=== PATIENT | female | born 1975 | race Native Hawaiian/Other Pacific Islander ===

== ENCOUNTER 2019-06-10 17:42 | Emergency (ER) | payer OTHER, BC ==
--- NOTE | 2019-06-10 17:52 | PDOC ---
Rapid Medical Evaluation Chief Complaint: Pain, Acute Time Seen by Provider: 06/10/19 17:50 Medical Evaluation: Allergies Allergy/AdvReac Type Severity Reaction Status Date / Time No Known Drug Allergies Allergy Verified 06/17/18 07:12 06/10/19 17:50 I have performed a brief in-person evaluation of this patient. The patient presents with a chief complaint of: Right flank pain radiating to RLQ Pertinent physical exam findings: No CVAT. No abd tenderness. I have ordered the following: urine, labs The patient will proceed to the ED for further evaluation. Discharge Disposition - Diagnosis Flank pain - Referrals - Patient Instructions - Post Discharge Activity
[2019-06-10 17:53] VITALS: TEMP 98.4; BMI 39.9
[2019-06-10] MEDS ORDERED: KETOROLAC TROMETHAMINE 30 MG/1 ML VIAL IVPUSH ONE (17:53)
[2019-06-10] MEDS ORDERED: ACETAMINOPHEN 1000 MG/100 ML VIAL (NON FORMULARY) IVPB ONE (18:23)
[2019-06-10] MEDS ORDERED: SODIUM CHLORIDE 1,000 ML IV STA (18:23)
--- NOTE | 2019-06-10 18:23 | PDOC ---
History of Present Illness - General Chief Complaint: Pain, Acute Stated Complaint: ABD PAIN Time Seen by Provider: 06/10/19 17:50 History Source: Patient Exam Limitations: No Limitations - History of Present Illness Initial Comments: 06/10/19 19:06 44 year old female with PMH HTN, multiple kidney stones presented to ED for right flank pain x2 days. Pt reported nausea. Pt stated her pain is constant, sharp, radiating from her RLQ to her right low back, no alleviating or aggravating factors. Pt reported symptoms feel similar to prior kidney stones. Pt denied vomiting, diarrhea, fever, constipation. Surgical history: cholecystectomy, hysterectomy Past History - Past Medical History Allergies/Adverse Reactions: Allergies Allergy/AdvReac Type Severity Reaction Status Date / Time No Known Drug Allergies Allergy Verified 06/10/19 17:53 Home Medications: Ambulatory Orders Lisinopril 5 mg PO DAILY 10/20/15 Oxycodone HCl/Acetaminophen [Percocet 10-325 mg Tablet] 1 tab PO ASDIR PRN #90 tablet MDD 8 09/25/16 HTN: Yes Kidney Stones: Yes - Surgical History Cholecystectomy: Yes - Suicide/Smoking/Psychosocial Hx Smoking Status: No Smoking History: Never smoked Have you smoked in the past 12 months: No Number of Cigarettes Smoked Daily: 0 Hx Alcohol Use: No Drug/Substance Use Hx: No Substance Use Type: None Hx Substance Use Treatment: No Review of Systems - Review of Systems Able to Perform ROS?: Yes Comments:: General: denied fever, chills, generalized weakness. HEENT: denied sore throat, rhinorrhea, ear pain. Cardiovascular: denied chest pain, palpitations, syncope, diaphoresis. Respiratory: denied shortness of breath, cough, sputum production, hemoptysis. Gastrointestinal: admitted to nausea. denied abdominal pain, vomiting, diarrhea , constipation, blood in stool. Genitourinary: admitted to flank pain. denied dysuria, increased urinary frequency, hematuria, urinary incontinence. Back: denied back pain. Musculoskeletal: denied joint pain, muscle pain, joint swelling. Neurological: denied headache, dizziness, numbness, tingling, weakness. Integumentary: denied rash, laceration, abrasion. Hematologic/Lymphatic: denied bruising or bleeding. *Physical Exam - Vital Signs Last Vital Signs Temp Pulse Resp BP Pulse Ox 98.4 F 92 H 10 192/111 H 99 06/10/19 17:50 06/10/19 17:50 06/10/19 17:50 06/10/19 17:50 06/10/19 17:50 - Physical Exam Comments: Constitutional: Well-nourished, Well-developed, appearing stated age. HEENT: head is normocephalic, atraumatic. EOMI. PERRLA. Neck: supple. Full ROM. Cardiovascular: regular heart rhythm. no murmurs. no pericardial friction rub. Respiratory: clear to auscultation bilaterally. no crackles, rhonchi or wheezing. no stridor. Gastrointestinal: soft, nontender. normal bowel sounds. no rebound, guarding, masses. Back: positive right sided CVA tenderness to palpation. negative left sided CVA tenderness to palpation. Extremities: peripheral pulses intact. no lower extremity edema. Neurological: CN 2-12 grossly intact. moves all four extremities. Psych: awake, alert, oriented x3. follows commands. answers questions appropriately. ED Treatment Course - LABORATORY CBC & Chemistry Diagram: 06/10/19 20:45 06/10/19 20:45 Medical Decision Making - Medical Decision Making 06/10/19 20:06 44 year old female with above PMH presented to ED for right flank pain x2 days. Initial Vital Signs Temp Pulse Resp BP Pulse Ox 98.4 F 92 H 10 192/111 H 99 06/10/19 17:50 06/10/19 17:50 06/10/19 17:50 06/10/19 17:50 06/10/19 17:50 Afebrile. No tachycardia. No tachypnea. Hypertensive - pt is in pain No hypoxia on room air. Labs ordered: CBC, CMP Imaging ordered: Spiral Abdominal CT noncontrast Medications ordered: normal saline bolus 1000 cc once, 1 percocet PO once 06/10/19 21:11 CBC WBC 12.2 K/mm3 (4.0-10.0) H 06/10/19 20:45 RBC 4.38 M/mm3 (3.60-5.2) 06/10/19 20:45 Hgb 12.3 GM/dL (10.7-15.3) 06/10/19 20:45 Hct 38.0 % (32.4-45.2) 06/10/19 20:45 MCV 86.9 fl (80-96) 06/10/19 20:45 MCH 28.1 pg (25.7-33.7) 06/10/19 20:45 MCHC 32.3 g/dl (32.0-36.0) 06/10/19 20:45 RDW 13.8 % (11.6-15.6) 06/10/19 20:45 Plt Count 379 K/MM3 (134-434) 06/10/19 20:45 MPV 8.6 fl (7.5-11.1) 06/10/19 20:45 Absolute Neuts (auto) 8.0 K/mm3 (1.5-8.0) 06/10/19 20:45 Neutrophils % 65.9 % (42.8-82.8) 06/10/19 20:45 Lymphocytes % 26.9 % (8-40) 06/10/19 20:45 Monocytes % 5.1 % (3.8-10.2) 06/10/19 20:45 Eosinophils % 1.2 % (0-4.5) 06/10/19 20:45 Basophils % 0.9 % (0-2.0) 06/10/19 20:45 Nucleated RBC % 0 % (0-0) 06/10/19 20:45 Leukocytosis without left shift. No anemia. No thrombocytopenia. 06/10/19 21:49 CMP Sodium 139 mmol/L (136-145) 06/10/19 20:45 Potassium 4.3 mmol/L (3.5-5.1) 06/10/19 20:45 Chloride 107 mmol/L (98-107) 06/10/19 20:45 Carbon Dioxide 27 mmol/L (21-32) 06/10/19 20:45 Anion Gap 5 MMOL/L (8-16) L 06/10/19 20:45 BUN 13.2 mg/dL (7-18) 06/10/19 20:45 Creatinine 0.8 mg/dL (0.55-1.3) 06/10/19 20:45 Est GFR (CKD-EPI)AfAm 105.39 06/10/19 20:45 Est GFR (CKD-EPI)NonAf 90.93 06/10/19 20:45 Random Glucose 89 mg/dL (74-106) 06/10/19 20:45 Calcium 9.3 mg/dL (8.5-10.1) 06/10/19 20:45 Total Bilirubin 0.2 mg/dL (0.2-1) 06/10/19 20:45 AST 23 U/L (15-37) 06/10/19 20:45 ALT 45 U/L (13-61) 06/10/19 20:45 Alkaline Phosphatase 125 U/L (45-117) H 06/10/19 20:45 Total Protein 8.0 g/dl (6.4-8.2) 06/10/19 20:45 Albumin 3.8 g/dl (3.4-5.0) 06/10/19 20:45 Beta HCG, Quant 1.2 mIU/ml 06/10/19 20:45 No electrolyte abnormalities. No GWENDOLYN. No transaminitis. Mild ALP elevation. Serum testing negative. Pt informed of results. Pt taken to CT. Pt signed out to night EM resident, Dr. Chamberlain PGY3. See his note. Pending imaging and disposition. 06/11/19 12:37 Follow up: Official CT report: Exam Date: 06/10/19 Status: [facility] [place] [id number] Unit Number: [id number] EXAM#: TYPE/EXAM: RESULT: [id number] CT/SPIRAL- RENAL-STONE CT Right flank pain. CT scan of the abdomen pelvis without oral and intravenous contrast Coronal and sagittal reformatted images were obtained Compared to prior CT scan of the abdomen and pelvis dated 03/02/2018 The visualized lung base appears unremarkable and the heart is within normal limits in size. Nondistended stomach limiting evaluation of its wall. Status post cholecystectomy surgical metallic clips are present. Evaluation of the liver, spleen, pancreas and both adrenal glands appear unremarkable. The left kidney appears unremarkable. Right kidney is within normal limits in size. Previously visualized punctate nonobstructing right renal stones are no longer seen. There is no evidence of hydroureteronephrosis or ureteral stone, bilaterally. Empty urinary bladder limiting evaluation of its wall without gross intraluminal stones. There is no evidence of small bowel obstruction. Normal-appearing terminal ileum and appendix. Normal stool burden the colon. A few tiny diverticula in the sigmoid colon without evidence of acute diverticulitis. Nonvisualization of the uterus. Perirectal and pericecal fat are clear. Visualized osseous structures appear intact Impression: Previously visualized punctate nonobstructing right renal stones are no longer seen. There is no evidence of hydroureteronephrosis, renal or ureteral stone, bilaterally. Empty urinary bladder limiting its evaluation without gross evidence of intraluminal stones. Correlate clinically to determine further evaluation and follow-up. Status post cholecystectomy. Reported By: Ruy Villavicencio MD 06/10/19 [id number] *DC/Admit/Observation/Transfer Diagnosis at time of Disposition: Flank pain, Chronic pain - Discharge Dispostion Disposition: HOME Condition at time of disposition: Good - Referrals Referrals: Alysa Schneider MD [Primary Care Provider] - Augusto Gao MD [Staff Physician] - - Patient Instructions Printed Discharge Instructions: DI for Prescription Opioid Use Additional Instructions: Your lab work was normal. Your urine analysis was normal. Your CT scan was normal. I am concerned that your symptoms may be due to withdrawal from the large amounts of opiates you have been taking. Follow up with your primary care doctor within 3 days. Your care is not complete until you follow up. Follow up with your urologist within 3 days. Your care is not complete until you follow up. If you were prescribed medications, take as advised on labels. Return to the Emergency Department for increasing pain, chest pain, shortness of breath, fever, blood in urine, increasing abdominal/flank pain, vomiting, blood in stool, blood in vomit, or any other new, worsening or concerning symptoms. - Post Discharge Activity Forms/Work/School Notes: Back to Work
[2019-06-10 21:02] LABS: URINE APPEARANCE CLOUDY; URINE BILIRUBIN NEGATIVE (NEGATIVE); URINE COLOR YELLOW; URINE GLUCOSE (UA) NEGATIVE (NEGATIVE); URINE KETONE NEGATIVE (NEGATIVE); URINE LEUK ESTERASE NEGATIVE (NEGATIVE); URINE NITRITE NEGATIVE (NEGATIVE); URINE PROTEIN NEGATIVE (NEGATIVE); URINE UROBILINOGEN 0.2 mg/dL (0.2-1.0)
[2019-06-10 21:04] LABS: BASO % 0.9 % (0-2.0); EOS % 1.2 % (0-4.5); HEMOGLOBIN 12.3 GM/dL (10.7-15.3); LYMPH % 26.9 % (8-40); MCH 28.1 pg (25.7-33.7); MCHC 32.3 g/dl (32.0-36.0); MEAN CELL VOLUME 86.9 fl (80-96); MEAN PLT VOLUME 8.6 fl (7.5-11.1); MONO % 5.1 % (3.8-10.2); NEUT % 65.9 % (42.8-82.8); PLATELET COUNT 379 K/MM3 (134-434); RBC 4.38 M/mm3 (3.60-5.2); RDW 13.8 % (11.6-15.6); WHITE BLOOD COUNT 12.2 K/mm3 (4.0-10.0)
[2019-06-10 21:39] LABS: ALBUMIN 3.8 g/dl (3.4-5.0); BILIRUBIN,TOTAL 0.2 mg/dL (0.2-1); BLOOD UREA NITROGEN 13.2 mg/dL (7-18); CALCIUM 9.3 mg/dL (8.5-10.1); CREATININE 0.8 mg/dL (0.55-1.3); POTASSIUM 4.3 mmol/L (3.5-5.1)
[2019-06-10] MEDS ORDERED: KETOROLAC TROMETHAMINE 15 MG/ML VIAL IVPUSH ONE (23:17)
--- NOTE | 2019-06-10 23:26 | PDOC ---
*Physical Exam - Vital Signs Last Vital Signs Temp Pulse Resp BP Pulse Ox 98.4 F 92 H 10 192/111 H 99 06/10/19 17:50 06/10/19 17:50 06/10/19 17:50 06/10/19 17:50 06/10/19 17:50 ED Treatment Course - LABORATORY CBC & Chemistry Diagram: 06/10/19 20:45 06/10/19 20:45 - ADDITIONAL ORDERS Additional order review: Laboratory Results 06/10/19 06/10/19 20:50 20:45 Sodium 139 Potassium 4.3 Chloride 107 Carbon Dioxide 27 Anion Gap 5 L BUN 13.2 Creatinine 0.8 Est GFR (CKD-EPI)AfAm 105.39 Est GFR (CKD-EPI)NonAf 90.93 Random Glucose 89 Calcium 9.3 Total Bilirubin 0.2 AST 23 ALT 45 Alkaline Phosphatase 125 H Total Protein 8.0 Albumin 3.8 Beta HCG, Quant 1.2 Urine Color Yellow Urine Appearance Cloudy Urine pH 5.0 Ur Specific [place] 1.037 H Urine Protein Negative Urine Glucose (UA) Negative Urine Ketones Negative Urine Blood Negative Urine Nitrite Negative Urine Bilirubin Negative Urine Urobilinogen 0.2 Ur Leukocyte Esterase Negative 06/10/19 20:45 RBC 4.38 MCV 86.9 MCHC 32.3 RDW 13.8 MPV 8.6 Neutrophils % 65.9 Lymphocytes % 26.9 Monocytes % 5.1 Eosinophils % 1.2 Basophils % 0.9 - Medications Given in the ED: ED Medications Discontinued Medications Generic Name Dose Route Start Last Admin Trade Name Leif PRN Reason Stop Dose Admin Acetaminophen 1,000 mg 06/10/19 18:23 06/10/19 20:54 Ofirmev Injection - IVPB 06/10/19 18:24 Not Given ONCE ONE Sodium Chloride 1,000 mls @ 1,000 mls/hr 06/10/19 18:23 06/10/19 20:54 Normal Saline - IV 06/10/19 19:22 1,000 mls/hr ASDIR STA Administration Ketorolac Tromethamine 30 mg 06/10/19 17:53 06/10/19 20:54 Toradol Injection - IVPUSH 06/10/19 17:54 Not Given ONCE ONE Oxycodone/Acetaminophen 2 combo 06/10/19 19:51 06/10/19 20:54 Percocet 5/325 - PO 06/10/19 19:52 2 combo ONCE ONE Administration Medical Decision Making - Medical Decision Making 06/10/19 23:[address] Cullen. Patient is 44F with history of avila, kidney stones and HTN here today with R flank pain consistent with her prior kidney stones. UA clear, CT normal. Istop shows 90 percocet given per month by urology for past [address] scans that aren't consistent with source of pain. Patient re-examined, reports nonspecific right sided abdominal pain without peritoneal signs. Pain complaint is out of proportion, and patient is walking and sitting without distress. Only has exhibits pain when laying down and being examined, not consistent with ovarian torsion. No signs of surgical abdomen. Will discharge with return precautions. *DC/Admit/Observation/Transfer Diagnosis at time of Disposition: Flank pain, Chronic pain - Discharge Dispostion Disposition: HOME Condition at time of disposition: Good Decision to Admit order: No - Referrals Referrals: Augusto Gao MD [Staff Physician] - Alysa Schneider MD [Primary Care Provider] - - Patient Instructions Printed Discharge Instructions: DI for Prescription Opioid Use Additional Instructions: Your lab work was normal. Your urine analysis was normal. Your CT scan was normal. I am concerned that your symptoms may be due to withdrawal from the large amounts of opiates you have been taking. Follow up with your primary care doctor within 3 days. Your care is not complete until you follow up. Follow up with your urologist within 3 days. Your care is not complete until you follow up. If you were prescribed medications, take as advised on labels. Return to the Emergency Department for increasing pain, chest pain, shortness of breath, fever, blood in urine, increasing abdominal/flank pain, vomiting, blood in stool, blood in vomit, or any other new, worsening or concerning symptoms. - Post Discharge Activity Forms/Work/School Notes: Back to Work
--- NOTE | 2019-06-10 23:34 | PDOC ---
Documentation entered by Cristo Lugo SCRIBE, acting as scribe for Pili Alan DO. Pili Alan DO: This documentation has been prepared by the Parish brambila Aiswarya, SCRIBE, under my direction and personally reviewed by me in its entirety. I confirm that the documentation accurately reflects all work, treatment, procedures, and medical decision making performed by me. Attending Attestation - Resident Resident Name: Kathia Cullen - ED Attending Attestation I have performed the following: I have examined & evaluated the patient, The case was reviewed & discussed with the resident, I agree w/resident's findings & plan - HPI HPI: 06/10/19 23:26 The patient is a 44 year old female, with a significant PMH of kidney stones and HTN, who presents to the emergency department complaining of abdominal pain that began 2 days ago. Patient states constant and sharp pain is located to RLQ that radiates to the right lower back. Endorses associated symptoms of nausea and urinary pressure. Patient ran out of [employer] and HCP is currently away. Last dose was 5 days ago. The patient denies chest pain, shortness of breath, headache and dizziness.Denies fever, chills, nausea, vomiting, diarrhea and constipation. Allergies: NKDA Past surgical history: cholecystectomy, hysterectomy Social history: None reported PCP: None reported - Physicial Exam PE: 06/10/19 23:26 Agree with residents PE - Medical Decision Making 06/10/19 23:30 44-year-old female complaining of right-sided abdominal pain CT scan of the abdomen and pelvis shows no significant abnormalities Patient's prescription history reviewed which shows monthly prescriptions for 90 tablets of Percocet, according to patient her doctor is on vacation, last dose 5 days ago Pain and elevated blood pressure likely consistent with opioid dependence Patient has had some mild relief with Percocet in the emergency department She will be given Toradol prior to discharge and has been advised to call her regular physician for refill
[2019-06-10] MEDS ORDERED: KETOROLAC TROMETHAMINE 15 MG/ML VIAL ONE (23:43)
[2019-06-11 00:21] VITALS: BP 160/99; PULSE 81
== END 2019-06-10 23:50 | disposition home or self-care (01) ==
LOC: JER 17:42
PROC: 3E0337Z Introduction of Electrolytic and Water Balance Substance into Peripheral Vein, Percutaneous Approach (ICD-10-PCS; principal; 2019-06-10)
PROC: 3E0333Z Introduction of Anti-inflammatory into Peripheral Vein, Percutaneous Approach (ICD-10-PCS; 2019-06-10)
DX: R10.31 Right lower quadrant pain (principal); I10 Essential (primary) hypertension; Z87.442 Personal history of urinary calculi; D72.829 Elevated white blood cell count, unspecified; F11.90 Opioid use, unspecified, uncomplicated
CPT/HCPCS: 36415; 74176-TC; 80053; 81003; 84702; 85025; 87086; 99283-25; J7030

== ENCOUNTER 2021-06-01 13:58 | Observation (INO) | payer OTHER, BC ==
[2021-06-01] MEDS ORDERED: ASPIRIN 325 MG TABLET PO ONE (14:58)
[2021-06-01 15:12] LABS: BASO % 0.8 % (0-2.0); EOS % 1.3 % (0-4.5); HEMATOCRIT 34.4 % (32.4-45.2); HEMOGLOBIN 11.4 GM/dL (10.7-15.3); LYMPH % 26.1 % (8-40); MEAN CELL VOLUME 84.7 fl (80-96); MEAN PLT VOLUME 8.3 fl (7.5-11.1); MONO % 5.8 % (3.8-10.2); PLATELET COUNT 345 10^3/uL (134-434); RBC 4.06 M/mm3 (3.60-5.2); RDW 13.6 % (11.6-15.6); WHITE BLOOD COUNT 11.6 K/mm3 (4.0-10.0)
[2021-06-01] MEDS ORDERED: ASPIRIN 81 MG CHEWABLE TABLETS ONE (15:12)
[2021-06-01] MEDS ORDERED: ASPIRIN 81 MG CHEWABLE TABLETS PO ONE (15:13)
[2021-06-01 15:26] LABS: CALCIUM 8.4 mg/dL (8.5-10.1)
[2021-06-01 15:27] LABS: ALBUMIN 3.4 g/dl (3.4-5.0); BLOOD UREA NITROGEN 11.9 mg/dL (7-18); MAGNESIUM 2.1 mg/dL (1.8-2.4)
[2021-06-01 15:30] LABS: CREATININE 0.7 mg/dL (0.55-1.3)
[2021-06-01 15:31] LABS: BILIRUBIN,TOTAL 0.2 mg/dL (0.2-1); TOT PROT 7.2 g/dl (6.4-8.2)
[2021-06-01] MEDS ORDERED: MAG HYDROX/AL HYDROX/SIMETH -MYLANTA- ORAL SUSPENSION PO ONE (16:48)
[2021-06-01] MEDS ORDERED: FAMOTIDINE 20 MG/50 ML IVPB 20 MG/50 ML MG IVPB ONE ×2 (16:48→17:54)
[2021-06-01] MEDS ORDERED: MAG HYDROX/AL HYDROX/SIMETH 30 ML UNIT-DOSE CUP ONE (17:54)
[2021-06-01 22:22] LABS: INR 0.99 (0.83-1.09)
[2021-06-01 22:24] LABS: ACTIVATED PTT 27.5 SECONDS (25.2-36.5)
[2021-06-01 22:36] LABS: MAGNESIUM 2.2 mg/dL (1.8-2.4)
[2021-06-02] MEDS ORDERED: KETOROLAC TROMETHAMINE 15 MG/ML VIAL IM ONE (03:32)
[2021-06-02] MEDS: ACETAMINOPHEN 325 MG TABLET (FP) PO PRN ×3 (03:41→18:16)
[2021-06-02 04:56] VITALS: BMI 40.5
[2021-06-02 06:44] LABS: BASO % 0.4 % (0-2.0); EOS % 1.2 % (0-4.5); HEMATOCRIT 34.6 % (32.4-45.2); HEMOGLOBIN 11.5 GM/dL (10.7-15.3); LYMPH % 17.8 % (8-40); MCH 28.2 pg (25.7-33.7); MCHC 33.1 g/dl (32.0-36.0); MEAN CELL VOLUME 85.3 fl (80-96); MEAN PLT VOLUME 8.5 fl (7.5-11.1); MONO % 6.2 % (3.8-10.2); NEUT % 74.4 % (42.8-82.8); PLATELET COUNT 336 10^3/uL (134-434); RBC 4.05 M/mm3 (3.60-5.2); RDW 13.4 % (11.6-15.6); WHITE BLOOD COUNT 11.9 K/mm3 (4.0-10.0)
[2021-06-02 06:59] LABS: CALCIUM 8.5 mg/dL (8.5-10.1)
[2021-06-02 07:03] LABS: CREATININE 0.7 mg/dL (0.55-1.3)
[2021-06-02] MEDS ORDERED: LISINOPRIL 10 MG TABLET PO SCH (10:00)
[2021-06-02] MEDS ORDERED: IBUPROFEN 400 MG TABLET (FP) PO PRN (13:25)
[2021-06-03 06:52] LABS: BASO % 0.4 % (0-2.0); EOS % 1.3 % (0-4.5); HEMATOCRIT 34.7 % (32.4-45.2); HEMOGLOBIN 11.6 GM/dL (10.7-15.3); LYMPH % 19.7 % (8-40); MCH 28.5 pg (25.7-33.7); MCHC 33.4 g/dl (32.0-36.0); MEAN CELL VOLUME 85.3 fl (80-96); MEAN PLT VOLUME 8.2 fl (7.5-11.1); MONO % 6.7 % (3.8-10.2); NEUT % 71.9 % (42.8-82.8); PLATELET COUNT 326 10^3/uL (134-434); RBC 4.06 M/mm3 (3.60-5.2); RDW 13.5 % (11.6-15.6); WHITE BLOOD COUNT 10.9 K/mm3 (4.0-10.0)
[2021-06-03] MEDS ORDERED: LISINOPRIL 20 MG TABLET PO SCH ×2 (08:15→17:38)
[2021-06-03] MEDS: PANTOPRAZOLE 40 MG TABLET PO SCH (12:27)
[2021-06-03] MEDS ORDERED: LISINOPRIL 20 MG TABLET PO ONE (17:37)
[2021-06-04] MEDS: PANTOPRAZOLE 40 MG TABLET PO SCH (09:13)
[2021-06-04 09:23] VITALS: BP 141/108; PULSE 80; TEMP 98.5
[2021-06-04] MEDS ORDERED: amLODIPine BESYLATE 5 MG TABLET (FP) PO SCH (10:00)
== END 2021-06-04 11:37 | disposition home or self-care (01) ==
LOC: JER 13:58 → UNDOADMOB 19:10 → INTOOBSV 19:10 → JERBED 19:10 → J4W 21:58 → JERBED 21:58 → J4W 06-02 00:21
PROVIDERS: ADMIT Internal Medicine; ATTEND Internal Medicine
PROC: 3E033GC Introduction of Other Therapeutic Substance into Peripheral Vein, Percutaneous Approach (ICD-10-PCS; principal; 2021-06-02)
PROC: 3E0233Z Introduction of Anti-inflammatory into Muscle, Percutaneous Approach (ICD-10-PCS; 2021-06-02)
DX: R07.9 Chest pain, unspecified (principal); I10 Essential (primary) hypertension; E66.01 Morbid (severe) obesity due to excess calories; Z68.41 Body mass index [BMI] 40.0-44.9, adult; N20.0 Calculus of kidney; G89.29 Other chronic pain
CPT/HCPCS: 36415; 71045-TC-FY; 71275-TC; 74174-TC; 80048; 80053; 83735; 84443; 84484; 84703; 85025; 85610; 85730; 93005; 93010; 93306-TC; 99285-25; C9803; G0378; Q9967; U0003; U0005